=== PATIENT | female | born 1955 | race African-American/Black ===

== ENCOUNTER 2019-07-16 15:17 | Emergency (ER) | payer MEDICARE, OTHER ==
[~2019-07-16] VITALS: Ht 165.1 cm; Wt 54.1 kg
[~2019-07-16 15:17] MED LIST: ASPI-1182 PO; B CO1CAP4 PO; B COMPLEX PO; CARV25 PO; COD473OI PO; DOXY100C PO; EPOE10I SQ; FURO80 PO; HYDR-2924 PO; IRON PO; NIFE30TA98 PO; NIFE60TA81 PO; NIFE90TA38 PO; WALK1EAC55; [UNRECOGNIZED DRUG - MIXTURE] PO
[2019-07-16 17:16] LABS: BASOPHILS % (AUTO) 1.3 % (0.0-2.0); EOSINOPHILS % (AUTO) 1.6 % (1.0-6.0); HEMATOCRIT 39.6 % (36-46); LYMPHOCYTES # (AUTO) 0.7 K/uL (1.0-4.8); LYMPHOCYTES % (AUTO) 7.2 % (22.0-44.0); MEAN CORPUSCULAR HGB CONC 32.8 G/dL (31.0-37.0); MEAN CORPUSCULAR VOLUME 98 fL (80-100); MONOCYTES # (AUTO) 1.3 K/uL (0.1-1.0); MONOCYTES % (AUTO) 13.1 % (2.0-9.0); NEUTROPHILS # (AUTO) 7.7 K/uL (1.8-7.7); NEUTROPHILS % (AUTO) 76.8 % (40.0-70.0); PLATELET COUNT (AUTO) 292 K/uL (150-450); RED BLOOD CELL COUNT(AUTO) 4.05 MIL/uL (4.00-5.20); RED CELL DISTRIBUTION WIDTH 18.5 % (11.5-14.5)
[2019-07-16 17:19] LABS: CALCIUM, TOTAL 10.2 mg/dL (8.8-10.5); CREATININE 4.32 mg/dL (0.60-1.30); POTASSIUM 4.2 mmol/L (3.5-5.1)
[2019-07-16 17:24] LABS: ALBUMIN 3.4 g/dL (3.4-5.0); BILIRUBIN,TOTAL 0.5 mg/dL (0.1-1.0); TOTAL PROTEIN, SERUM 8.8 g/dL (6.4-8.2)
[2019-07-16] MEDS ORDERED: NITROGLYCERIN 2% (1 GM=INCH) PACKET TP ONE (17:30)
[2019-07-16 17:31] LABS: PROTHROMBIN TIME 10.8 SEC (9.4-11.6)
[2019-07-16 18:19] LABS: INFLUENZA TYPE A NEGATIVE FOR TYPE A (NEGATIVE); INFLUENZA TYPE B NEGATIVE FOR TYPE B (NEGATIVE)
[2019-07-16] MEDS ORDERED: IPRATROPIUM BROMIDE 0.5 MG/2.5 ML NEB SOLUTION NEB ONE (19:30)
[2019-07-16] MEDS ORDERED: ALBUTEROL SULFATE 2.5 MG/0.5 ML NEB SOLUTION NEB ONE (19:30)
[2019-07-16] MEDS ORDERED: CefTRIAXone 1 GM/DEXTROSE 50 ML IV ONE (19:30)
[2019-07-16] MEDS ORDERED: NIFEdipine 60 MG ER TABLET PO ONE (20:15)
[2019-07-16 21:08] VITALS: BP 185/98
== END 2019-07-16 22:06 | disposition home or self-care (01) ==
LOC: EMS 15:22
DX: J20.9 Acute bronchitis, unspecified (principal); I12.0 Hypertensive chronic kidney disease with stage 5 chronic kidney disease or end stage renal disease; E11.22 Type 2 diabetes mellitus with diabetic chronic kidney disease; N18.6 End stage renal disease; I25.10 Atherosclerotic heart disease of native coronary artery without angina pectoris; Z99.2 Dependence on renal dialysis; Z79.82 Long term (current) use of aspirin; Z79.899 Other long term (current) drug therapy
CPT/HCPCS: 36415; 71045; 80053; 83880; 84484; 85025; 85610; 85730; 87040; 87804; 93005; 94640; 96365; 96366; 99285; J0696